=== PATIENT | male | born 1975 | race Caucasian/White ===

== ENCOUNTER 2022-09-06 14:17 | Observation (INO) | payer BC, SELFPAY ==
[2022-09-06] VITALS (9 sets, daily range): BP systolic 128–146; BP diastolic 72–95; PULSE 68–81; RESP 13–16; TEMP 36.5–37.1; O2SAT 92–100; BMI 28.1
--- NOTE | ~2022-09-06 | US_ITS ---
EXAMINATION: US scrotum doppler DATE: 09/06/2022 16:57 INDICATION: testicular trauma . TECHNIQUE: Grayscale and Doppler ultrasound images of the testes were obtained. COMPARISON: None. FINDINGS: The right testis measures 5.7 x 2.8 x 3.3 cm. The left testis measures 5.0 x 2.9 x 3.2 cm. 2.4 x 1.4 x 1.9 lobular heterogeneous area in the inferior right testicle, extending to the surface o f the testicle, with a rim of slightly echogenic tissue with absent or slow flow. The remaining testi cular parenchyma is compressed, hypoechoic and demonstrates decreased flow. There is normal vascular flow in the left testicle. The right epididymis is normal with normal vascular flow. The left epididy mis is normal with normal vascular flow. Small volume bilateral hydroceles. Of note, the right hydroc michael is of uniform echogenicity, without evidence of hemorrhage. IMPRESSION: 2.4 cm right inferior intratesticular hematoma causing displacement and ischemia of the adjacent test icular parenchyma. Focal contained testicular rupture is possible. Recommend urology consultation. Th zackary findings should be followed to resolution to exclude a testicular mass. Results reported telephonically to Dr. Tan by Dr. Farah at 5:47 PM on 09/06/2022. Reviewed, dictated and finalized at location K. IMPRESSION: 2.4 cm right inferior intratesticular hematoma causing displacement and ischemi a of the adjacent testicular parenchyma. Focal contained testicular rupture is possible. Recommend urology consultation. These findings should be followed to resolution to exclude a testicular mass. Results reported telephonically to Dr. Tan by Dr. Farah at 5:47 PM on .
--- NOTE | 2022-09-06 16:58 | ED.GENADULT ---
HPI - General Adult General Chief complaint: Urogenital-Male Stated complaint: hit in testicles with baseball Time Seen by Provider: 09/06/22 16:24 History of Present Illness HPI narrative: 46-year-old male presented the emergency department for evaluation after an injury to his right testicle. Patient was pitching at a baseball game and the ball was struck directly at him and struck him on the right testicle. Patient states immediately after the accident he had a high riding left testicle with increased swelling. Patient has been icing the injury since arrival to the emergency department and states that the pain has improved and that the swelling is also improved. Patient has no prior history of torsion or vasectomy. Related Data Home Medications Medication Instructions Recorded Confirmed omeprazole 20 mg capsule,delayed 20 mg PO DAILY 09/06/22 09/06/22 release Allergies Allergy/AdvReac Type Severity Reaction Status Date / Time No Known Allergies Allergy Unverified 05/15/14 15:00 [facility] Past Medical History Medical History History of blood clots History of rib fracture History of traumatic brain injury Surgical History Surgical History History of brain surgery History of tracheostomy Social History Social History Smoking status: Never smoker Second hand tobacco smoke exposure: No Alcohol intake: never Substance use: never Substance use type: does not use Living arrangements: with family Spiritual care concerns: No Exam Narrative: APPEARANCE: Well appearing, no pain, no distress, well-nourished. HEAD: normocephalic, atraumatic. EYES: PERRLA/EOMI, conjunctivae clear. NOSE: Normal no drainage NECK: Supple. No adenopathy, no masses. RESPIRATORY: Airway patent, respirations nonlabored. Clear to auscultation bilaterally, no rales, rhonchi, wheezing. CARDIOVASCULAR: Regular rate and rhythm without murmurs rubs or gallops. ABDOMINAL: Soft, nontender, nondistended, normal bowel sounds urogenital: Right testicular tenderness. Right testicle is not high riding. No significant scrotal edema or ecchymosis MUSCULOSKELETAL: Moves all extremities. Strength/ROM intact, No edema, No calf tenderness. NEURO: Alert. Cranial nerves II through XII intact. SKIN: Warm, dry. Normal Color Course Course Emergency Course: Patient was found to have a right testicular rupture. Case discussed with urology and patient was emergently transferred to the OR for repair. Vital Signs Vital signs: Vital Signs Temperature 97.8 F 09/06/22 14:27 Pulse Rate 68 09/06/22 14:27 Respiratory Rate 16 09/06/22 14:27 Blood Pressure 128/76 09/06/22 14:27 Pulse Oximetry 100 09/06/22 14:27 Temperature 97.7 F 09/07/22 03:45 Pulse Rate 65 09/07/22 03:45 Respiratory Rate 16 09/07/22 03:45 Blood Pressure 116/47 L 09/07/22 03:45 Pulse Oximetry 99 09/07/22 03:45 Oxygen Delivery Room Air 09/06/22 22:24 Oxygen Flow Rate 10 09/06/22 21:15 Medical Decision Making Vital Signs Vital Signs: Vital Signs Temperature 97.8 F 09/06/22 14:27 Pulse Rate 68 09/06/22 14:27 Respiratory Rate 16 09/06/22 14:27 Blood Pressure 128/76 09/06/22 14:27 Pulse Oximetry 100 09/06/22 14:27 Temperature 97.7 F 09/07/22 03:45 Pulse Rate 65 09/07/22 03:45 Respiratory Rate 16 09/07/22 03:45 Blood Pressure 116/47 L 09/07/22 03:45 Pulse Oximetry 99 09/07/22 03:45 Oxygen Delivery Room Air 09/06/22 22:24 Oxygen Flow Rate 10 09/06/22 21:15 Lab Data Labs: Lab Results 09/06/22 Range/Units 16:53 Urine Color Yellow (Yellow) Urine Appearance Clear (Clear) Urine pH 6.0 (5.0-9.0) Ur Specific [place] 1.018 (1.001-1.035) Urine Protein Negative (Negative) mg/dL Urine Glucos
[2022-09-06 17:14] LABS: Add Urine Microscopic? YES; Appearance Urine Clear (Clear); Bilirubin Urine Negative (Negative); Blood Urine Negative (Negative); Color Urine Yellow (Yellow); Glucose Urine UA Negative (Negative); Ketones Urine Negative (Negative); Leukocyte Esterase Ur Negative LEU/UL (Negative); Mucus Urine Few /lpf; Nitrate Urine Negative (Negative); Protein Urine Negative (Negative); RBC Urine 0-2 /hpf (0-2); Specific Grav Ur 1.018 (1.001-1.035); Urobilinogen Urine Negative mg/dL (<2.0); WBC Urine 0-3 /hpf
[2022-09-06] MEDS: HYDROcodone/acetaminophen (*CRX) 5-325 MG TABLET 1 TAB PO (17:24)
--- NOTE | 2022-09-06 19:03 | WPDANESEPP ---
Anes - Eval Pre Procedure Procedure: Right testicular exploration Date/Time: 09/06/22 19:03 Surgeon: Rachel Preop Diagnosis: Testicular rupture Pre Op Diagnosis: hit in testicles with baseball Patient Data Age: 46 Gender: M Height: 1.85 m Weight: 95 kg Last Vital Signs Temp 97.8 F 09/06/22 14:27 Pulse 68 09/06/22 14:27 Resp 16 09/06/22 14:27 BP 128/76 09/06/22 14:27 Pulse Ox 100 09/06/22 14:27 Allergies Allergy/AdvReac Type Severity Reaction Status Date / Time No Known Allergies Allergy Unverified 05/15/14 15:00 Laboratory Tests 09/06/22 16:53 Urine Color Yellow (Yellow) Urine Appearance Clear (Clear) Urine pH 6.0 (5.0-9.0) Ur Specific [place] 1.018 (1.001-1.035) Urine Protein Negative mg/dL mg/dL (Negative) Urine Glucose (UA) Negative mg/dL mg/dL (Negative) Urine Ketones Negative mg/dL mg/dL (Negative) Ur Blood (Man) Negative (Negative) Urine Nitrate Negative (Negative) Urine Bilirubin Negative (Negative) Urine Urobilinogen Negative mg/dL mg/dL (<2.0) Leukocyte Esterase Rfl Negative PIOTR/UL PIOTR/UL (Negative) Urine RBC 0-2 /hpf /hpf (0-2) Urine WBC 0-3 /hpf /hpf Urine Mucus Few /lpf H /lpf Patient hx anesthesia problems: none Family hx anesthesia problems: none Results Review: All pre-operative results and documents have been reviewed as part of the pre-operative evaluation. [facility] Past Medical History Medical History History of blood clots History of rib fracture History of traumatic brain injury Surgical History Surgical History History of brain surgery History of tracheostomy Social History Social History (Updated 09/06/22 @ 19:07 by Clay Quinones CRNA) Smoking status: Never smoker Second hand tobacco smoke exposure: No Alcohol intake: never Substance use: never Exam Day of Procedure 09/06/22 19:03 Patient weight: overweight Heart: regular rate and rhythm Lungs: clear to auscultation Airway: Mallampati scale class II Neurological: alert and oriented
--- NOTE | 2022-09-06 19:25 | P.HP_ITS ---
H&P: HPI History of Present Illness Date/Time: 09/06/22 19:25 Chief Complaint: Right testicular trauma Narrative: 46-year-old male who was playing vintage baseball without any gloves and suffered a injury to his scrotum by a baseball. He presented to the emergency room and was evaluated with a scrotal ultrasound. That revealed a 2 cm hematoma with questionable rupture and some mild ischemia. Were asked to see him regarding this. Review of Systems Review of Systems: All systems reviewed & are unremarkable except as noted in HPI and below PMFSH Past Medical History Medical History History of blood clots History of rib fracture History of traumatic brain injury Surgical History Surgical History History of brain surgery History of tracheostomy Social History Social History Smoking status: Never smoker Second hand tobacco smoke exposure: No Alcohol intake: never Substance use: never Meds Home Medications and Allergies Allergies Allergy/AdvReac Type Severity Reaction Status Date / Time No Known Allergies Allergy Unverified 05/15/14 15:00 Vital Signs Vital Signs - 24 hr 09/06/22 14:27 Temperature 36.6 C Pulse Rate 68 Respiratory Rate 16 Blood Pressure 128/76 Pulse Oximetry 100 Exam Const: General: cooperative and comfortable Resp: Effort & Inspection: normal respiratory effort Cardio: Rate: regular rate Rhythm: regular rhythm : Scrotum: ecchymosis, edematous and scrotal mass (Tender right testicle with hematoma) H&P: Results Labs Labs: Urine 09/06/22 Range/Units 16:53 Urine Color Yellow (Yellow) Urine Appearance Clear (Clear) Urine pH 6.0 (5.0-9.0) Ur Specific [place] 1.018 (1.001-1.035) Urine Protein Negative (Negative) mg/dL Urine Glucose (UA) Negative (Negative) mg/dL Assessment and Plan Assessment and plan (1) Traumatic hematoma of testicle: Code(s): S30.201A - Contusion of unspecified external genital organ, male, initial encounter Status: Acute Assessment and Plan: Discussed findings with patient and his . Given the findings of a hematoma with possible testicular rupture have recommended proceeding to the operating room for scrotal exploration with repair, orchiopexy and possible orchiectomy of right testicle Patient understands and wishes to proceed
--- NOTE | 2022-09-06 19:30 | WPDHPUPDATE1 ---
History and Physical Update Update Date/Time: 09/06/22 19:30 History and Physical has been reviewed, including an updated exam of the patient. There are NO changes in the patient's condition. Risks, benefits, and alternatives have been discussed and questions answered. Patient agrees to proceed with procedure.
--- NOTE | 2022-09-06 19:45 | P.PNAN_ITS ---
Anes - Initial Pre Proc Eval Procedure: Operation Date: 09/06/22 19:30 Proposed Procedures p Scrotal Exploration - Alvaro Ramos MD Date/Time: 09/06/22 19:45 Surgeon: Alvaro Ramos MD Pre Op Diagnosis: Ruptured Right Testicle Patient Data Age: 46 Gender: M Height: 1.85 m Weight: 95 kg Last Vital Signs Temp 36.6 C 09/06/22 14:27 Pulse 68 09/06/22 14:27 Resp 16 09/06/22 14:27 BP 128/76 09/06/22 14:27 Pulse Ox 100 09/06/22 14:27 Allergies Allergy/AdvReac Type Severity Reaction Status Date / Time No Known Allergies Allergy Unverified 05/15/14 15:00 Laboratory Tests 09/06/22 16:53 Urine Color Yellow (Yellow) Urine Appearance Clear (Clear) Urine pH 6.0 (5.0-9.0) Ur Specific [place] 1.018 (1.001-1.035) Urine Protein Negative mg/dL mg/dL (Negative) Urine Glucose (UA) Negative mg/dL mg/dL (Negative) Urine Ketones Negative mg/dL mg/dL (Negative) Ur Blood (Man) Negative (Negative) Urine Nitrate Negative (Negative) Urine Bilirubin Negative (Negative) Urine Urobilinogen Negative mg/dL mg/dL (<2.0) Leukocyte Esterase Rfl Negative PIOTR/UL PIOTR/UL (Negative) Urine RBC 0-2 /hpf /hpf (0-2) Urine WBC 0-3 /hpf /hpf Urine Mucus Few /lpf H /lpf Patient hx anesthesia problems: none Family hx anesthesia problems: none Results Review: All pre-operative results and documents have been reviewed as part of the pre- operative evaluation. [facility] Past Medical History Medical History History of blood clots History of rib fracture History of traumatic brain injury Surgical History Surgical History History of brain surgery History of tracheostomy Social History Social History Smoking status: Never smoker Second hand tobacco smoke exposure: No Alcohol intake: never Substance use: never Anes - Eval Final PreProcedure Day of Procedure 09/06/22 19:45 Patient weight: overweight Heart: regular rate and rhythm Lungs: clear to auscultation Airway: Mallampati scale class II Neurological: alert and oriented Last oral intake: 2 hours (less than) ASA classification: III Emergent: yes Anesthetic plan: proceed Anesthesia type and monitoring: general ETT and standard monitoring Results Review: All pre-operative results and documents have been reviewed as part of the pre- operative evaluation. Informed Consent: The patient's anesthetic plan and its attendant risks and benefits were discussed with the patient/family/POA. Questions were solicited and answers provided to the satisfaction of the patient/family/POA.
[2022-09-06] MEDS: BUPIVACAINE HCL 0.25% PF 30 ML VIAL INFILTRATE (20:06)
--- NOTE | 2022-09-06 20:48 | W.PM.PROC2 ---
Procedure Note - Detailed Date of Procedure 09/06/22 Pre-op Diagnosis Scrotal trauma with possible right testicular rupture Post-op Diagnosis Same Procedure Performed Scrotal exploration with evacuation of hematoma repair of right testicular rupture right orchiopexy, right hydrocelectomy Surgeon Alvaro Ramos MD Anesthesia General Description of Procedure Patient is taken to the operative suite correctly identified. Once anesthesia was obtained was prepped draped usual sterile fashion. Transverse incision is made over the right hemiscrotum and carried down through the tunica layers. The scrotal contents was then brought out into the operative field. Was apparent immediately there was a significant hematoma in the inferior aspect of the testicle. He also had a hydrocele which we opened and drained. The excess tissue was removed. The hematoma was at the inferior aspect. We dissected down to this area. It was noted that there was a testicular rupture on the inferior aspect of the testicle. Some of the hematoma was evacuated from the testicular contents. Seminiferous tubules had to be trimmed back until there was viable tissue. We then reapproximated the tunica using 3-0 PDS in interrupted fashion. Orchiopexy was then performed using 4-0 Ethibond by securing the testicle in the medial lateral and inferior aspects. Quarter-inch [place] drain was placed through a separate stab an inches in and secured. Two of was closed using 3-0 chromic in a running fashion. Skin was anesthetized with 1% lidocaine. Skin was closed using 4-0 chromic in a running fashion. Patient is taken recovery stable condition. Estimated Blood Loss 25 Drains Yes Packing No Pathology None sent Complications No immediate complications Condition Stable Disposition PACU
[2022-09-06] MEDS: LACTATED RINGERS 1,000 ML 30 ML IV CONT (21:02)
[2022-09-06] MEDS: MEPERIDINE HCL INJ (*CRX) 50 MG/ML AMPUL 25 MG IV PUSH (21:31)
[2022-09-07 03:45] VITALS: BP 116/47; PULSE 65; RESP 16; TEMP 36.5; O2SAT 99
[2022-09-07] MEDS: HYDROcodone/acetaminophen (*CRX) 5-325 MG TABLET 2 TAB PO (08:24)
[2022-09-07 10:03] VITALS: BP 122/67; PULSE 73; RESP 16; TEMP 36.6; O2SAT 99
--- NOTE | 2022-09-07 11:04 | WPDUROPN2 ---
Progress Note: A&P Assessment and Plan (1) Rupture of testis: Code(s): S31.30XA - Unspecified open wound of scrotum and testes, initial encounter Status: Acute Assessment and Plan: Doing well today. He is status post scrotal exploration with evacuation of hematoma right hydrocelectomy, repair of testicular rupture, and right orchiopexy. Discharged home with drain. Instructed to remove drain 1-2 days if minimal drainage. Follow-up in 2-3 weeks time. Will obtain scrotal ultrasound at that time. Scripts for tramadol and Cipro written Subjective Subjective Date/Time Seen: 09/07/22 11:04 Post Op day: 1 Principal diagnosis: Right testicular rupture Interval history: Doing well today. Minimal pain. Will plan on discharge with a [place] drain and have him remove in 2-3 days if minimal drainage. Review of Systems Review of Systems: All systems reviewed & are unremarkable except as noted in HPI and below Exam Const: General: cooperative and comfortable Resp: Effort & Inspection: normal respiratory effort Cardio: Rate: regular rate Rhythm: regular rhythm : Scrotum: edematous Objective Data Vital Signs Vital Signs: Vital Signs - 24 hr 09/06/22 14:27 09/06/22 21:02 09/06/22 21:15 Temperature 36.6 C 36.5 C Pulse Rate 68 81 68 Respiratory Rate 16 14 13 Blood Pressure 128/76 135/95 H 146/91 H Pulse Oximetry 100 100 100 Oxygen Delivery Simple Face Mask Simple Face Mask Oxygen Flow Rate 10 10 09/06/22 21:30 09/06/22 21:45 09/06/22 22:24 Temperature Pulse Rate 74 69 Respiratory Rate 14 13 Blood Pressure 142/89 H 128/79 Pulse Oximetry 100 100 Oxygen Delivery Room Air Room Air Room Air Oxygen Flow Rate 09/06/22 22:00 09/06/22 22:15 09/06/22 22:45 Temperature 36.8 C 36.8 C 36.8 C Pulse Rate 68 70 74 Respiratory Rate 16 16 16 Blood Pressure 130/72 136/75 131/72 Pulse Oximetry 100 98 92 Oxygen Delivery Oxygen Flow Rate 09/06/22 23:45 09/07/22 03:45 09/07/22 10:03 Temperature 37.1 C 36.5 C 36.6 C Pulse Rate 70 65 73 Respiratory Rate 16 16 16 Blood Pressure 129/72 116/47 L 122/67 Pulse Oximetry 95 99 99 Oxygen Delivery Oxygen Flow Rate Intake/Output Intake/Output: Intake & Output 09/04/22 09/05/22 09/06/22 09/07/22 23:59 23:59 23:59 23:59 Intake Total 450 540 Output Total 550 700 Balance -100 -160 Meds/Results Medications: Active Medications Generic Name Dose Route Start Last Admin Trade Name Freq PRN Reason Stop Dose Admin Hydrocodone Bitart/Acetaminophen 1 tab 09/07/22 05:00 Hydrocodone/Acetaminophen (*Crx) 5-325 Mg Tablet PO Q4H PRN Pain Rated 1-3 Hydrocodone Bitart/Acetaminophen 2 tab 09/07/22 05:00 09/07/22 08:24 Hydrocodone/Acetaminophen (*Crx) 5-325 Mg Tablet PO 2 tab Q4H PRN Administration Pain Rated 4-6 Hydromorphone HCl 0.5 mg 09/06/22 22:00 Hydromorphone Hcl Inj (*Crx) 1 Mg/Ml Syr IV PUSH Q4H PRN Pain Rated 7-10 Naloxone HCl 0.1 mg 09/06/22 22:00 Naloxone Hcl 0.4 Mg/Ml Vial IV PUSH Q2M PRN Opiate Reversal Radiology Results: ITS Impressions Scrotum Ultrasound 09/06/22 17:40 IMPRESSION: 2.4 cm right inferior intratesticular hematoma causing displacement and ischemia of the adjacent testicular parenchyma. Focal contained testicular rupture is possible. Recommend urology consultation. These findings should be followed to resolution to exclude a testicular mass. Results reported telephonically to Dr. Tan by Dr. Farah at 5:47 PM on 09/06/2022. Labs Labs: Laboratory Results - last 24 hr 09/06/22 16:53 Urine Color Yellow Urine Appearance Clear Urine pH 6.0 Ur Specific [place] 1.018 Urine Protein Negative Urine Glucose (UA) Negative Urine Ketones Negative Ur Blood (Man) Negative Urine Nitrate Negative Urine Bilirubin Negative Urine Urobilinogen Negative Leukocyte Esterase Rfl Negative Urine RBC 0-2
--- NOTE | 2022-10-28 13:32 | PM.DS ---
DS: Admitting Diagnosis Discharge Date 09/07/22 Admitting Diagnosis Scrotal trauma with right testicular rupture DS: Discharge Diagnosis Discharge Diagnosis Plan same DS: Summary Hospital Course Reason for hospitalization: right testicular trauma with rupture Hospital Course: patient underwent scrotal exploration with repair of testicular rupture. Patient was admitted for pain control. He did well overnight was discharged home the following morning Status at Discharge Functional status at discharge: independent ambulation Time Spent with Patient Time attestation: Total time spent providing and/or coordinating discharge services: Exam Const: General: cooperative Resp: Effort & Inspection: normal respiratory effort Cardio: Rate: regular rate Rhythm: regular rhythm : Scrotum: scrotal swelling ( typical postop swelling. No erythema) Discharge Plan Discharge Attending physician on discharge: Alvaro Ramos Consulting providers: Go Farah ; Clay Quinones ; Jose Logan Discharging Clinician: Alvaro Ramos Anticipated Discharge Date/Time: 09/07/22 11:07 Patient Disposition: Home, Self-Care Activity: may shower and other - see discharge instructions Diet: regular Wound Care Instructions: other - see discharge instructions Discharge Instructions: Patient to apply ice pack to scrotum and keep scrotum elevated. Patient instructed to remove [place] drain in 1-2 days if minimal drainage by cutting suture. Patient may shower. Follow-up in 2-3 weeks. Call for appointment. Sooner if develops any issues or problems no heavy lifting or straining until seeing in the office. Scripts for tramadol and Cipro written and given to nurse to give to patient Patient Instructions: Antibiotic Form Stand Alone Forms: General Discharge Information Follow-up/Referrals: PHYSICIAN NOT ON STAFF,NONSTAFF [Primary Care Provider] - Discharge Medications: Continued omeprazole 20 mg capsule,delayed release(DR/EC) 20 mg PO DAILY Date of admission: 09/07/22 06:30 Primary Care Provider: PHYSICIAN NOT ON STAFF,NONSTAFF Admitting Provider: Alvaro Ramos Attending physician on admission: Alvaro Ramos Condition: Serious
== END 2022-09-07 12:19 | disposition home or self-care (01) ==
LOC: ANHED 19:35 → ANHSURGERY 19:39 → ANH2MED 22:04 → ANHSURGERY 09-07 06:46 → ANH2MED 09-07 06:46
PROVIDERS: Emergency Medicine; Admitting Provider Urology; Emergency Provider Emergency Medicine; Visit Provider Urology
PROC: (CPT 55110; principal; 2022-09-06 19:30)
DX: S30.22XA Contusion of scrotum and testes, initial encounter (principal); S38.02XA Crushing injury of scrotum and testis, initial encounter; W21.03XA Struck by baseball, initial encounter; Y93.64 Activity, baseball; N43.3 Hydrocele, unspecified; Z86.718 Personal history of other venous thrombosis and embolism; Z87.820 Personal history of traumatic brain injury; E66.3 Overweight; Z68.28 Body mass index [BMI] 28.0-28.9, adult
CPT/HCPCS: 54700; 54640; 55040; 76870; 81001; 93976; 99285; A9270; G0378; J0330; J0696; J1100; J2175; J2250; J2405; J2704; J3010; J7120